=== PATIENT | male | born 1960 | race Caucasian/White ===

== ENCOUNTER 2019-11-27 14:01 | Inpatient (IN) ==
[2019-11-27] MEDS ORDERED: ZOFRAN INJ 4 MG VIAL IVP PRN (15:02)
[2019-11-27] MEDS ORDERED: NS 500 ML IV 500 ML IV ONE ×2 (15:03→17:19)
--- NOTE | 2019-11-27 15:26 | RAD ---
HISTORYDOE, ANEMIASTUDYCHEST, PA/LAT ADULTCOMPARISONNoneFINDINGSThe trachea is midline. The cardiac silhouette is unremarkable . The lungs are clear without focal infiltrate or effusion. Vascularity and mediastinal structures are normal. The bony thorax is unremarkable.IMPRESSIONNo acute cardiopulmonary disease.Electronically signed by: DELORES REID (Nov 27, 2019 15:26:05)
[2019-11-27 15:39] LABS: BASOPHILS % (AUTO) 0.7 % (0.2-1.0); EOSINOPHILS # (AUTO) 0.1 x10^3/uL (0.0-0.2); EOSINOPHILS % (AUTO) 1.6 % (0.9-2.9); HEMATOCRIT 23.2 % (42.0-54.0); HEMOGLOBIN 7.8 g/dL (13.5-18.0); LYMPHOCYTES # (AUTO) 1.3 X10^3/uL (1.3-2.9); LYMPHOCYTES % (AUTO) 24.6 % (21.0-51.0); MEAN CORPUSCULAR HEMOGLOBIN 29.9 pg (27.0-34.0); MEAN CORPUSCULAR HGB CONC 33.6 g/dL (33.0-35.0); MEAN CORPUSCULAR VOLUME 89.2 fL (80.0-100.0); MEAN PLATELET VOLUME 6.6 fL (7.4-11.0); MONOCYTES # (AUTO) 0.4 x10^3/uL (0.3-0.8); MONOCYTES % (AUTO) 7.7 % (0.0-13.0); NEUTROPHILS # (AUTO) 3.6 x10^3/uL (2.2-4.8); NEUTROPHILS % (AUTO) 65.4 % (42.0-75.0); PLATELET COUNT 325 X10^3/uL (150.0-450.0); RED CELL DISTRIBUTION WIDTH 14.1 % (11.6-16.5); WHITE BLOOD COUNT 5.4 X10^3/uL (3.6-10.0)
[2019-11-27 15:44] LABS: HYPOCHROMASIA 1+; PLATELET MORPHOLOGY COMMENT NORMAL (NORMAL)
[2019-11-27] MEDS ORDERED: PREVNAR 13 IM ONE (16:28)
[2019-11-27] MEDS ORDERED: AFLURIA II4 or FLUARIX II4 IM ONE (16:28)
[2019-11-27] MEDS: PROTONIX INJ 40 MG VIAL IVP SCH ×2 (16:38→21:11)
[2019-11-27] MEDS: NS 1000 ML 1,000 ML IV SCH (16:38)
[2019-11-27 17:35] LABS: ALANINE AMINOTRANSFERASE 23 Units/L (12-78); ALBUMIN 3.6 g/dL (3.4-5.0); ALKALINE PHOSPHATASE 79 Units/L (46-116); ASPARTATE AMINO TRANSFERASE 23 Units/L (15-37); BLOOD UREA NITROGEN 15 mg/dL (7-18); CALCIUM 8.8 mg/dL (8.5-10.1); CARBON DIOXIDE 23.1 mmol/L (21-32); CHLORIDE 100 mmol/L (98-107); SODIUM 133 mmol/L (136-145); TOTAL PROTEIN 7.4 g/dL (6.4-8.2); eGFR NON BLACK RACES > 60 (>60)
[2019-11-27] MEDS: BENADRYL INJ 50 MG VIAL IVP PRN (17:40)
--- NOTE | 2019-11-27 17:40 | DR.H&P ---
H&P - History & Physical for Day of: H&P Date: 11/27/19 - Chief Complaint Chief Complaint: weakness, blood in stool, anemic - History of Present Illness History of Present Illness: PT IS 59 WM DIRECT ADMIT FROM DR PARADA OFFICE IN [place] WITH SYMPTOMATIC ANEMIA AND CO BLACK TARRY STOOL, BLOOD IN STOOL. PT HAD HX OF GASTRIC ULCER DISEASED AND HAS BEEN ON PPI THERAPY. PT CO INCREASED FATIGUE AND SOB ON EXERTION WITHOUT ANY FLU LIKE SYMPTOMS. PT HAD +OCCULT STOOL AND HGB OF 7.5 ON OUTPT BASIS. PT ADMITTED FOR ACUTE ILLNESS. - Past Medical History Past Medical History: Anxiety, Arthritis, Diabetes, Dialysis, Hypertension, SVT - Family History Family Medical History: Diabetes Mellitus, Cancer, [place], Sudden Cardiac , Hypertension - Social History Does patient currently use any type of tobacco product: Yes Have you used tobacco products in the last 12 months: Yes Type of Tobacco Use: Smokeless Alcohol Use: None - Medications Home Medications: Penicillins Allergy (Verified 08/09/18 00:42) Sulfa (Sulfonamide Antibiotics) [SULFA] Allergy (Verified 08/09/18 00:42) - Review of Systems Constitutional: Weakness. denies: Fever Eyes: No Symptoms Reported ENT: No Symptoms Reported Respiratory: SOB with Excertion Cardiovascular: No Symptoms Reported, Edema Gastrointestinal: Melena Genitourinary: No Symptoms Reported Musculoskeletal: Back Pain Skin: No Symptoms Reported Neurological: No Symptoms Reported - Physical Exam Vital Signs: Temperature 98.4 F Pulse Rate [Left Brachial] 72 Respiratory Rate 20 Blood Pressure [Right Arm] 169/87 Blood Pressure [Left Arm] 142/67 Blood Pressure 145/93 O2 Sat by Pulse Oximetry 100 Oriented: Normal Eyes: Normal Ear: Normal Nose: Normal Throat: Normal Respiratory: RLL Diminished, LLL Diminished Cardiovascular: Normal, Edema : Normal Auscultation: Bowel Sounds: Normal Palpation: Normal Tenderness: Epigastric, Mild Skin: Decreased Turgur Musculoskeletal: Back:Lumbar Psychiatric: Anxiety Affect: Anxious Speech Pattern: Clear, Appropriate - Assessment/Plan (1) GI bleed Status: Acute Plan: ADMIT, TYPE AND SCREEN. TRANSFUSE PRBC, REPEAT OCCULT STOOL. PPI THERAPY BID, NPO AFTER MIDNIGHT, GI CONSULT. IV HYDRATION, ANEMIA PANEL. VERIFY HOME MEDICATION AND RESUME, HOLD NSAIDS. 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
[2019-11-27] MEDS: TYLENOL 325 MG TAB PO PRN ×2 (17:45→18:43)
[2019-11-27 17:59] LABS: IRON 23 ug/dL (50-175)
[2019-11-27] MEDS: NORCO 10/325 TAB PO PRN (20:06)
[2019-11-27 21:13] LABS: HEMOGLOBIN 7.8 g/dL (13.5-18.0)
[2019-11-28] MEDS: NORCO 10/325 TAB PO PRN ×5 (00:36→21:05)
[2019-11-28] MEDS: NS 1000 ML 1,000 ML IV SCH (05:19)
[2019-11-28 06:26] LABS: BASOPHILS % (AUTO) 0.7 % (0.2-1.0); EOSINOPHILS # (AUTO) 0.1 x10^3/uL (0.0-0.2); EOSINOPHILS % (AUTO) 2.9 % (0.9-2.9); HEMATOCRIT 22.1 % (42.0-54.0); HEMOGLOBIN 7.4 g/dL (13.5-18.0); LYMPHOCYTES # (AUTO) 1.7 X10^3/uL (1.3-2.9); LYMPHOCYTES % (AUTO) 36.8 % (21.0-51.0); MEAN CORPUSCULAR HEMOGLOBIN 29.5 pg (27.0-34.0); MEAN CORPUSCULAR HGB CONC 33.7 g/dL (33.0-35.0); MEAN CORPUSCULAR VOLUME 87.8 fL (80.0-100.0); MEAN PLATELET VOLUME 6.4 fL (7.4-11.0); MONOCYTES # (AUTO) 0.5 x10^3/uL (0.3-0.8); MONOCYTES % (AUTO) 11.2 % (0.0-13.0); NEUTROPHILS # (AUTO) 2.2 x10^3/uL (2.2-4.8); NEUTROPHILS % (AUTO) 48.4 % (42.0-75.0); PLATELET COUNT 255 X10^3/uL (150.0-450.0); RED BLOOD COUNT 2.51 X10^6/uL (4.7-6.0); RED CELL DISTRIBUTION WIDTH 13.8 % (11.6-16.5); WHITE BLOOD COUNT 4.5 X10^3/uL (3.6-10.0)
[2019-11-28 06:28] LABS: ALANINE AMINOTRANSFERASE 21 Units/L (12-78); ALBUMIN 2.8 g/dL (3.4-5.0); ALKALINE PHOSPHATASE 67 Units/L (46-116); ASPARTATE AMINO TRANSFERASE 26 Units/L (15-37); BLOOD UREA NITROGEN 13 mg/dL (7-18); CALCIUM 8.3 mg/dL (8.5-10.1); CARBON DIOXIDE 24.1 mmol/L (21-32); CHLORIDE 104 mmol/L (98-107); COR CA(FOR HYPOALB) 9.3 mg/dL (8.5-10.1); CREATININE 0.82 mg/dL (0.70-1.30); SODIUM 135 mmol/L (136-145); TOTAL PROTEIN 6.1 g/dL (6.4-8.2); eGFR NON BLACK RACES > 60 (>60)
[2019-11-28 07:07] LABS: PLATELET MORPHOLOGY COMMENT NORMAL (NORMAL)
[2019-11-28] MEDS: PROTONIX INJ 40 MG VIAL IVP SCH ×2 (08:59→20:45)
[2019-11-28] MEDS ORDERED: DIPRIVAN VIAL 20 ML ONE (09:46)
[2019-11-28] MEDS ORDERED: INFeD or DEXFERRUM 25 MG in NS 100 ML IV 100 ML IV NR (10:00)
[2019-11-28] MEDS ORDERED: CARAFATE ONE (10:30)
[2019-11-28] MEDS: TYLENOL 325 MG TAB PO PRN (10:39)
[2019-11-28] MEDS: BENADRYL INJ 50 MG VIAL IVP PRN (10:41)
[2019-11-28] MEDS: MORPHINE SULFATE INJ 2 MG INJ IVP PRN ×2 (10:54→19:49)
[2019-11-28] MEDS ORDERED: INFeD or DEXFERRUM 975 MG in NS 500 ML IV 500 ML IV NR (11:00)
[2019-11-28] MEDS ORDERED: NS 500 ML IV 500 ML IV PRN (11:09)
[2019-11-28 11:31] LABS: BILIRUBIN,URINE NEGATIVE (NEGATIVE); BLOOD/HEMOGLOBIN,URINE NEGATIVE (NEGATIVE); GLUCOSE, URINE NEGATIVE (NEGATIVE); KETONES,URINE NEGATIVE (NEGATIVE); LEUKOCYTE ESTERASE ,URINE NEGATIVE (NEGATIVE); NITRITES,URINE NEGATIVE (NEGATIVE); PROTEIN,URINE NEGATIVE (NEGATIVE); UROBILINOGEN,URINE NORMAL (NORMAL)
[2019-11-28 11:42] LABS: APPEARANCE,URINE CLEAR (CLEAR); COLOR,URINE YELLOW (YELLOW)
[2019-11-28] MEDS: CARAFATE PO SCH ×2 (13:04→21:09)
[2019-11-28] MEDS ORDERED: LOPRESSOR TAB 50 MG PO SCH (15:00)
[2019-11-28] MEDS ORDERED: LOPRESSOR TAB 50 MG ONE (15:08)
[2019-11-28 15:56] LABS: HEMATOCRIT 30.2 % (42.0-54.0)
[2019-11-28] MEDS ORDERED: XANAX PO PRN (17:35)
--- NOTE | 2019-11-28 18:11 | PCM.PROG ---
Progress Note - Progress Note for Day of Date of Exam: 11/28/19 - Subjective Subjective: PT IS 59 WM ADMITTED WITH SYMPTOMATIC ANEMIA, GI BLEED. PT HGB WAS 7.8, WITH ONE UNIT PRBC TRANSFUSED DURING THE NIGHT REPEAT 7.4 THIS AM. PT IS CURRENTLY ON PROTONIX IV BID, NPO FOR POSSIBLE EGD PER DR LINDER. PT HAS HX OF CHRONIC LSPINE DDD, PAIN CONTROL CONTINUED. HOLDING NSAID, MOBIC. PT ALSO HAD HX OF SMOKELESS TOBACCO ABUSE WITH REPORTS OF DYSPHAGI. ANEMIA PANEL OBTAINED WITH POSITIVE OCCULT STOOL ON ADMISSION, FE REPLACEMENT ORDERED. - Past Medical Family Social History Past Med/Fam/Surg Hx: No changes since H&P Allergies: Allergies Penicillins Allergy (Verified 08/09/18 00:42) Sulfa (Sulfonamide Antibiotics) [SULFA] Allergy (Verified 08/09/18 00:42) - Review of Systems ROS: No change since H&P - Vital Signs and I&O's Vital Signs: Temperature 99.6 F Pulse Rate [Right Brachial] 119 Pulse Rate [Left Brachial] 68 Respiratory Rate 18 Blood Pressure [Right Arm] 168/81 Blood Pressure [Left Arm] 142/67 Blood Pressure 145/93 O2 Sat by Pulse Oximetry 100 Intake and Output: Intake & Output 11/26/19 11/27/19 11/28/19 11/29/19 11:59 11:59 11:59 11:59 Intake Total 2810 / 2810 1230 / 1230 Balance 2810 / 2810 1230 / 1230 - Physical Exam Oriented: Normal Eyes: Normal Ear: Normal Nose: Normal Throat: Normal Respiratory: Diminished Cardiovascular: Normal, Edema : Normal Auscultation: Bowel Sounds: Normal Tenderness: Epigastric, Mild Skin: Decreased Turgur Musculoskeletal: Back:Lumbar Psychiatric: Anxiety Affect: Anxious Speech Pattern: Clear, Appropriate - Laboratory and Diagnostics Result Diagrams: 11/28/19 15:30 11/28/19 05:10 Labs: Laboratory WBC 4.5 X10^3/uL (3.6-10.0) 11/28/19 05:10 RBC 2.51 X10^6/uL (4.7-6.0) L 11/28/19 05:10 Hgb 10.0 g/dL (13.5-18.0) L D 11/28/19 15:30 Hct 30.2 % (42.0-54.0) L 11/28/19 15:30 MCV 87.8 fL (80.0-100.0) 11/28/19 05:10 MCH 29.5 pg (27.0-34.0) 11/28/19 05:10 MCHC 33.7 g/dL (33.0-35.0) 11/28/19 05:10 RDW 13.8 % (11.6-16.5) 11/28/19 05:10 Plt Count 255 X10^3/uL (150.0-450.0) 11/28/19 05:10 Plt Count Comment Adequate (ADEQUATE) 11/28/19 05:10 MPV 6.4 fL (7.4-11.0) L 11/28/19 05:10 Neut % (Auto) 48.4 % (42.0-75.0) 11/28/19 05:10 Lymph % (Auto) 36.8 % (21.0-51.0) 11/28/19 05:10 Reeves % (Auto) 11.2 % (0.0-13.0) 11/28/19 05:10 Eos % (Auto) 2.9 % (0.9-2.9) 11/28/19 05:10 Baso % (Auto) 0.7 % (0.2-1.0) 11/28/19 05:10 Neut # (Auto) 2.2 x10^3/uL (2.2-4.8) 11/28/19 05:10 Lymph # (Auto) 1.7 X10^3/uL (1.3-2.9) 11/28/19 05:10 Reeves # (Auto) 0.5 x10^3/uL (0.3-0.8) 11/28/19 05:10 Eos # (Auto) 0.1 x10^3/uL (0.0-0.2) 11/28/19 05:10 Baso # (Auto) 0.0 X10^3/uL (0.0-0.1) 11/28/19 05:10 Absolute Nucleated RBC 0.0 /100WBC 11/28/19 05:10 Plt Morphology Comment Normal (NORMAL) 11/28/19 05:10 RBC Morphology Normal (NORMAL) 11/28/19 05:10 Hypochromasia 1+ A 11/27/19 15:25 Sodium 135 mmol/L (136-145) L 11/28/19 05:10 Corrected Sodium TNP 11/28/19 05:10 Potassium 4.3 mmol/L (3.5-5.1) 11/28/19 05:10 Chloride 104 mmol/L (98-107) 11/28/19 05:10 Carbon Dioxide 24.1 mmol/L (21-32) 11/28/19 05:10 BUN 13 mg/dL (7-18) 11/28/19 05:10 Creatinine 0.82 mg/dL (0.70-1.30) 11/28/19 05:10 Est GFR (MDRD) Af Amer > 60 (>60) 11/28/19 05:10 Est GFR (MDRD) Non-Af > 60 (>60) 11/28/19 05:10 Glucose 68 mg/dL (65-99) 11/28/19 05:10 POC Glucose (mg/dL) 108 mg/dL (65-99) H 11/28/19 15:43 Calcium 8.3 mg/dL (8.5-10.1) L 11/28/19 05:10 Corrected Calcium 9.3 mg/dL (8.5-10.1) 11/28/19 05:10 Magnesium 2.2 mg/dL (1.7-2.9) 11/27/19 15:25 Iron 23 ug/dL (50-175) L 11/27/19 15:25 Transferrin 275 mg/dL (202-364) 11/27/19 15:25 Ferritin 19 ng/mL (26-388) L 11/27/19 15:25 Total Bilirubin 0.30 mg/dL (0.2-1.0) 11/28/19 05:10 AST 26 Units/L (15-37) 11/28/19 05:10 ALT 21 Units/L (12-78) 11/28/19 05:10 Alkaline Phosphatase 67 Units/L (46-116) 11/28/19 05:10 Total Protein 6.1 g/dL (6.4-8.2) L 11/28/19 05:10 Albumin 2.8 g/dL (3.4-5.0) L 11/28/19 05:10 Globulin 3.3 g/dL (2.5-4.5) 11/28/19 05:10 Albumin/Globulin Ratio 0.8 Ratio (1.1-2.1) L 11/28/19 05:10 Vitamin B12 271 pg/mL (193-986) 11/27/19 15:25 Folate 7.1 ng/mL (>8.6) L 11/27/19 15:25 Specimen Type Clean catch urine 11/28/19 10:52 Urine Color Yellow (YELLOW) 11/28/19 10:52 Urine Appearance Clear (CLEAR) 11/28/19 10:52 Urine pH 6.0 (5.0 - 8.0) 11/28/19 10:52 Ur Specific [place] 1.010 (1.000-1.030) 11/28/19 10:52 Urine Protein Negative (NEGATIVE) 11/28/19 10:52 Urine Glucose (UA) Negative (NEGATIVE) 11/28/19 10:52 Urine Ketones Negative (NEGATIVE) 11/28/19 10:52 Urine Occult Blood Negative (NEGATIVE) 11/28/19 10:52 Urine Nitrite Negative (NEGATIVE) 11/28/19 10:52 Urine Bilirubin Negative (NEGATIVE) 11/28/19 10:52 Urine Urobilinogen Normal (NORMAL) 11/28/19 10:52 Ur Leukocyte Esterase Negative (NEGATIVE) 11/28/19 10:52 Tissue Pathology To follow 11/28/19 10:38 Blood Type AB POSITIVE 11/27/19 15:25 Blood Type Cancelled 11/27/19 15:25 Antibody Screen Cancelled 11/27/19 15:25 Antibody Screen Negative 11/27/19 15:25 Crossmatch See Detail 11/27/19 15:25 - Plan (1) GI bleed Status: Acute Plan: TYPE AND SCREEN. TRANSFUSE PRBC, REPEAT OCCULT STOOL. PPI THERAPY BID, GI CONSULT. IV HYDRATION, ANEMIA PANEL, FE REPLACEMENT. VERIFY HOME MEDICATION AND RESUME, HOLD NSAIDS. BS CONTROL (2) Anemia Status: Acute (3) Diabetes Status: Chronic Qualifiers: Diabetes mellitus type: type 2 Diabetes mellitus complication status: with neurologic complications Diabetes mellitus complication detail: with polyneuropathy Qualified Code(s): E11.42 - Type 2 diabetes mellitus with diabetic polyneuropathy (4) GERD (gastroesophageal reflux disease) Status: Chronic
[2019-11-28] MEDS: NEURONTIN TAB 600 MG PO SCH ×2 (18:55→23:18)
[2019-11-28] MEDS: LOPRESSOR TAB 50 MG PO SCH (23:51)
[2019-11-29] MEDS: NORCO 10/325 TAB PO PRN ×4 (01:41→13:56)
[2019-11-29] MEDS: NEURONTIN TAB 600 MG PO SCH ×2 (05:11→13:51)
[2019-11-29] MEDS: CARAFATE PO SCH ×2 (05:11→13:51)
[2019-11-29 06:38] LABS: BASOPHILS % (AUTO) 0.1 % (0.2-1.0); EOSINOPHILS % (AUTO) 0.1 % (0.9-2.9); HEMATOCRIT 26.8 % (42.0-54.0); HEMOGLOBIN 9.2 g/dL (13.5-18.0); LYMPHOCYTES # (AUTO) 0.5 X10^3/uL (1.3-2.9); LYMPHOCYTES % (AUTO) 5.2 % (21.0-51.0); MEAN CORPUSCULAR HEMOGLOBIN 29.9 pg (27.0-34.0); MEAN CORPUSCULAR HGB CONC 34.3 g/dL (33.0-35.0); MEAN CORPUSCULAR VOLUME 87.2 fL (80.0-100.0); MEAN PLATELET VOLUME 6.5 fL (7.4-11.0); MONOCYTES # (AUTO) 0.4 x10^3/uL (0.3-0.8); MONOCYTES % (AUTO) 4.7 % (0.0-13.0); NEUTROPHILS # (AUTO) 8.1 x10^3/uL (2.2-4.8); NEUTROPHILS % (AUTO) 89.9 % (42.0-75.0); PLATELET COUNT 227 X10^3/uL (150.0-450.0); RED BLOOD COUNT 3.07 X10^6/uL (4.7-6.0); RED CELL DISTRIBUTION WIDTH 14.1 % (11.6-16.5)
[2019-11-29 07:01] LABS: ALKALINE PHOSPHATASE 76 Units/L (46-116); BLOOD UREA NITROGEN 12 mg/dL (7-18); CALCIUM 8.4 mg/dL (8.5-10.1); CARBON DIOXIDE 23.6 mmol/L (21-32); CHLORIDE 103 mmol/L (98-107); COR CA(FOR HYPOALB) 9.2 mg/dL (8.5-10.1); COR NA(FOR HYPERGLY) 136 mmol/L (136-145); CREATININE 0.89 mg/dL (0.70-1.30); SODIUM 136 mmol/L (136-145); TOTAL PROTEIN 6.6 g/dL (6.4-8.2); eGFR NON BLACK RACES > 60 (>60)
[2019-11-29 07:17] LABS: ALANINE AMINOTRANSFERASE 47 Units/L (12-78); ASPARTATE AMINO TRANSFERASE 54 Units/L (15-37)
[2019-11-29] MEDS: PROTONIX INJ 40 MG VIAL IVP SCH (08:56)
[2019-11-29] MEDS: LOPRESSOR TAB 50 MG PO SCH (08:57)
[2019-11-29] MEDS ORDERED: VITAMIN C PO SCH (09:00)
[2019-11-29] MEDS ORDERED: ROCEPHIN VIAL 1 GRAM 1 G in NS 100 ML IV + SPIKE MINIBAG* 100 ML IV ONE (10:21)
[2019-11-29] MEDS ORDERED: ROCEPHIN VIAL 1 GRAM IM ONE (11:41)
[2019-11-29] MEDS ORDERED: PREVNAR 13 IM ONE (11:52)
[2019-11-29] MEDS ORDERED: ROCEPHIN VIAL 1 GRAM ONE (11:52)
[2019-11-29] MEDS ORDERED: XYLOCAINE 1 % (PLAIN) IM ONE (11:55)
[2019-11-29] MEDS ORDERED: XYLOCAINE 1 % (PLAIN) ONE (12:00)
[2019-11-29 12:34] VITALS: BP 127/63
== END 2019-11-29 14:30 | disposition home or self-care (01) | DRG 379 ==
LOC: MED/SURG → OBSVTOIN 15:03
PROVIDERS: ADMIT Internal Medicine; ATTEND Internal Medicine
DX: K29.00 Acute gastritis without bleeding; E11.42 Type 2 diabetes mellitus with diabetic polyneuropathy; R13.11 Dysphagia, oral phase; Z23 Encounter for immunization; R06.02 Shortness of breath; Z87.11 Personal history of peptic ulcer disease; M51.36 Other intervertebral disc degeneration, lumbar region; K92.1 Melena; K21.9 Gastro-esophageal reflux disease without esophagitis; E11.65 Type 2 diabetes mellitus with hyperglycemia; D64.9 Anemia, unspecified

== ENCOUNTER 2020-07-29 14:30 | Observation (INO) ==
[2020-07-29 16:19] LABS: BASOPHILS % (AUTO) 0.1 % (0.2-1.0); HEMATOCRIT 35.3 % (42.0-54.0); LYMPHOCYTES % (AUTO) 10.4 % (21.0-51.0); MEAN CORPUSCULAR HEMOGLOBIN 30.7 pg (27.0-34.0); MEAN CORPUSCULAR HGB CONC 34.1 g/dL (33.0-35.0); MEAN CORPUSCULAR VOLUME 89.9 fL (80.0-100.0); MONOCYTES # (AUTO) 0.6 x10^3/uL (0.3-0.8); NEUTROPHILS # (AUTO) 8.3 x10^3/uL (2.2-4.8); NEUTROPHILS % (AUTO) 83.5 % (42.0-75.0); PLATELET COUNT 280 X10^3/uL (150.0-450.0); RED BLOOD COUNT 3.93 X10^6/uL (4.7-6.0); RED CELL DISTRIBUTION WIDTH 12.8 % (11.6-16.5)
[2020-07-29 16:31] LABS: ALANINE AMINOTRANSFERASE 16 Units/L (12-78); ALBUMIN 4.2 g/dL (3.4-5.0); ALKALINE PHOSPHATASE 70 Units/L (46-116); ASPARTATE AMINO TRANSFERASE 20 Units/L (15-37); BLOOD UREA NITROGEN 15 mg/dL (7-18); CALCIUM 9.2 mg/dL (8.5-10.1); CARBON DIOXIDE 23.9 mmol/L (21-32); CHLORIDE 91 mmol/L (98-107); CREATININE 1.17 mg/dL (0.70-1.30); SODIUM 129 mmol/L (136-145); TOTAL PROTEIN 7.9 g/dL (6.4-8.2); eGFR NON BLACK RACES > 60 (>60)
[2020-07-29] MEDS: MILK OF MAGNESIA PO SCH ×3 (16:42→21:07)
[2020-07-29] MEDS: SOLU-Medrol 125 MG VIAL IVP SCH ×2 (16:43→21:07)
[2020-07-29] MEDS: PROTONIX INJ 40 MG VIAL IVP SCH (16:43)
[2020-07-29] MEDS: NORCO 10/325 TAB PO PRN ×2 (16:54→23:19)
--- NOTE | 2020-07-29 16:57 | RAD ---
HISTORYCONSTIPATION Relevant Clinical InformationSTUDYACUTE ABDOMEN SERIESCOMPARISONNoneFINDINGSThe trachea is midline. The cardiac silhouette is [unremarkable]. [The lungs are clear without focal mass or consolidation. There is no effusion or pneumothorax.] [The bony thorax is unremarkable].Flat plate and upright evaluation of the abdomen demonstrates a [normal bowel gas pattern]. There is no increase in stool burden to suggest as constipation. There is no pneumoperitoneum. No pathological soft tissue mass or calcification can be observed. The bony structures are grossly intact.IMPRESSION1. [No acute cardiopulmonary disease.]2. [No evidence for acute abdominal pathology identified.] No evidence of constipationElectronically signed by: DELORES REID (Jul 29, 2020 16:55:34)
[2020-07-29 17:06] VITALS: BMI 25.4
--- NOTE | 2020-07-29 17:44 | DR.H&P ---
H&P - History & Physical for Day of: H&P Date: 07/29/20 - Chief Complaint Chief Complaint: constant mid back and lower back pain, dehydrated, no bm in 7 days - History of Present Illness History of Present Illness: PT IS 60 WM ADMITTED WITH CO INTRACTABLE MID AND LOWER BACK PAIN SINCE THIS PAST WEEK. PT REPORTS HE WAS SEEN IN ER 2X SINCE ONSET. CT ABD/PELVIS TO RO RENAL STONE WAS NEGATIVE. PT REPORTS HE HAS HAD FALLS IN PAST BUT NO KNOWN RECENT TRAUMA. 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 PT HAD TAKE NORCO AND MUSCLE RELAXER AT HOME WITHOUT ANY RELIEF. PT REPORTS NO APPETITE, WEAKNESS FROM DEHYDRATION AND NO BM IN 7 DAYS. PT ADMITTED FOR TREATMENT OF ACUTE ILLNESS. - Past Medical History Past Medical History: SVT, Hypertension, Diabetes, Dialysis, Anxiety, Arthritis - Past Surgical History Surgical History: No History - Family History Family Medical History: Diabetes Mellitus, [place] - Social History Does patient currently use any type of tobacco product: No Have you used tobacco products in the last 12 months: No Type of Tobacco Use: None Does any household member use tobacco: No Alcohol Use: None Drug Use: None - Medications Home Medications: Penicillins Allergy (Verified 07/29/20 17:10) Sulfa (Sulfonamide Antibiotics) [SULFA] Allergy (Verified 07/29/20 17:10) CONTINUE taking the following medications acetaminophen [Tylenol] 325 mg PO PRN PRN 07/29/20 [History] alprazolam [Xanax] 0.5 mg PO BID PRN 07/29/20 [History] aspirin 325 mg PO DAILY 07/29/20 [History] carbidopa-levodopa 10 - 100 tab PO TID 07/29/20 [History] meloxicam 7.5 mg PO BID PRN 07/29/20 [History] - Review of Systems Constitutional: Malaise Eyes: No Symptoms Reported ENT: No Symptoms Reported Respiratory: No Symptoms Reported Cardiovascular: No Symptoms Reported Gastrointestinal: Nausea, Constipation, Other (APPETITE LOSS) Genitourinary: Frequency Musculoskeletal: Back Pain, Leg Pain Skin: No Symptoms Reported Neurological: Other (DECREASED SENSATION TO LOWER LEGS) - Physical Exam Vital Signs: Temperature 97.7 F Pulse Rate [Left Brachial] 76 Respiratory Rate 18 Blood Pressure [Right Arm] 127/63 Blood Pressure [Left Arm] 157/79 Blood Pressure 164/77 O2 Sat by Pulse Oximetry 100 Oriented: Normal Eyes: Normal Ear: Normal Nose: Normal Throat: Normal Respiratory: RLL Diminished, LLL Diminished Cardiovascular: Normal : Normal Auscultation: Bowel Sounds: Decreased Palpation: Normal Tenderness: Diffuse, Mild Skin: Decreased Turgur Musculoskeletal: Right, Left, Hip, Back:Thoracic, Back:Lumbar, Tender, Sensory Deficit Psychiatric: Anxiety, Depression Mood Description: Depressed, Anxious Affect: Anxious Speech Pattern: Clear, Appropriate - Assessment/Plan (1) Intractable low back pain Status: Acute Plan: ADMIT, ADMISSION LABS. GENTLE IV HYDRATION, I&OS. BP AND BS CONTROL, IV SOLU MEDROL. EKG AND ABD SERIES ON ADMISSION. PAIN AND NAUSEA CONTROL, PPI THERAPY. MRI T AND L SPINE TO RO SPINAL CORD COMPRESSION. VERIFY HOME MEDICATION (2) Dehydration with hyponatremia Status: Acute (3) Neuropathy Status: Acute (4) Hypertension Qualifiers: Hypertension type: essential hypertension Qualified Code(s): I10 - Essential (primary) hypertension Status: Chronic (5) Diabetes Qualifiers: Diabetes mellitus type: type 2 Diabetes mellitus complication status: with neurologic complications Diabetes mellitus complication detail: with polyneuropathy Qualified Code(s): E11.42 - Type 2 diabetes mellitus with diabetic polyneuropathy Status: Chronic (6) DDD (degenerative disc disease), lumbosacral Status: Chronic (7) GERD (gastroesophageal reflux disease) Status: Chronic (8) Constipation Qualifiers: Constipation type: slow transit constipation Qualified Code(s): K59.01 - Slow transit constipation Status: Acute - Allergies Allergies/Adverse Reactions: Allergies Allergy/AdvReac Type Severity Reaction Status Date / Time Penicillins Allergy Verified 07/29/20 17:10 Sulfa (Sulfonamide Allergy Verified 07/29/20 17:10 Antibiotics) [SULFA]
[2020-07-29 17:48] LABS: APPEARANCE,URINE CLEAR (CLEAR); BILIRUBIN,URINE NEGATIVE (NEGATIVE); BLOOD/HEMOGLOBIN,URINE NEGATIVE (NEGATIVE); COLOR,URINE YELLOW (YELLOW); GLUCOSE, URINE NEGATIVE (NEGATIVE); KETONES,URINE 3+ (NEGATIVE); LEUKOCYTE ESTERASE ,URINE NEGATIVE (NEGATIVE); NITRITES,URINE NEGATIVE (NEGATIVE); PROTEIN,URINE NEGATIVE (NEGATIVE); UROBILINOGEN,URINE NORMAL (NORMAL)
[2020-07-29] MEDS ORDERED: TORADOL 15 MG VIAL ONE (17:50)
[2020-07-29] MEDS: NS 1000 ML 1,000 ML IV SCH (17:52)
[2020-07-29] MEDS: NEURONTIN TAB 600 MG PO SCH ×2 (17:52→21:06)
[2020-07-29] MEDS: TORADOL 15 MG VIAL IVP SCH (17:53)
[2020-07-29] MEDS ORDERED: MORPHINE SULFATE INJ 2 MG INJ IVP ONE (20:54)
[2020-07-29] MEDS: LOPRESSOR TAB 50 MG PO SCH (21:06)
[2020-07-29] MEDS: SINEMET (PLAIN) 10/100 MG PO SCH (21:06)
[2020-07-29] MEDS: COLACE CAP 100 MG PO SCH (21:06)
[2020-07-30] MEDS: TORADOL 15 MG VIAL IVP SCH ×2 (02:15→09:05)
[2020-07-30] MEDS: SINEMET (PLAIN) 10/100 MG PO SCH ×3 (05:10→21:45)
[2020-07-30] MEDS: NEURONTIN TAB 600 MG PO SCH ×3 (05:10→21:45)
[2020-07-30] MEDS: SOLU-Medrol 125 MG VIAL IVP SCH ×3 (05:10→21:46)
[2020-07-30] MEDS: NORCO 10/325 TAB PO PRN ×4 (05:17→23:14)
[2020-07-30 05:35] LABS: BASOPHILS % (AUTO) 0.1 % (0.2-1.0); HEMATOCRIT 31.5 % (42.0-54.0); LYMPHOCYTES # (AUTO) 0.3 X10^3/uL (1.3-2.9); LYMPHOCYTES % (AUTO) 9.3 % (21.0-51.0); MEAN CORPUSCULAR HGB CONC 34.9 g/dL (33.0-35.0); MEAN CORPUSCULAR VOLUME 88.8 fL (80.0-100.0); MEAN PLATELET VOLUME 6.6 fL (7.4-11.0); MONOCYTES # (AUTO) 0 x10^3/uL (0.3-0.8); NEUTROPHILS # (AUTO) 3.2 x10^3/uL (2.2-4.8); NEUTROPHILS % (AUTO) 89.6 % (42.0-75.0); PLATELET COUNT 229 X10^3/uL (150.0-450.0); RED BLOOD COUNT 3.55 X10^6/uL (4.7-6.0); RED CELL DISTRIBUTION WIDTH 12.8 % (11.6-16.5); WHITE BLOOD COUNT 3.6 X10^3/uL (3.6-10.0)
[2020-07-30 05:47] LABS: ALANINE AMINOTRANSFERASE 16 Units/L (12-78); ALBUMIN 3.5 g/dL (3.4-5.0); ALKALINE PHOSPHATASE 69 Units/L (46-116); ASPARTATE AMINO TRANSFERASE 15 Units/L (15-37); BLOOD UREA NITROGEN 12 mg/dL (7-18); CALCIUM 8.3 mg/dL (8.5-10.1); CARBON DIOXIDE 23.7 mmol/L (21-32); CHLORIDE 96 mmol/L (98-107); COR NA(FOR HYPERGLY) 135 mmol/L (136-145); CREATININE 0.99 mg/dL (0.70-1.30); SODIUM 131 mmol/L (136-145); TOTAL PROTEIN 6.9 g/dL (6.4-8.2); eGFR NON BLACK RACES > 60 (>60)
[2020-07-30] MEDS: NS 1000 ML 1,000 ML IV SCH ×3 (06:28→16:42)
[2020-07-30] MEDS: ZANAFLEX PO PRN ×2 (06:28→23:14)
[2020-07-30] MEDS ORDERED: PROTONIX TAB 40 MG PO SCH (09:00)
[2020-07-30] MEDS: PROTONIX INJ 40 MG VIAL IVP SCH (09:04)
[2020-07-30] MEDS: LOPRESSOR TAB 50 MG PO SCH ×2 (09:05→21:45)
[2020-07-30] MEDS: MILK OF MAGNESIA PO SCH (09:06)
[2020-07-30] MEDS: HumuLIN R SUBCUT PRN ×3 (11:06→21:48)
[2020-07-30] MEDS ORDERED: ZOFRAN INJ 4 MG VIAL IVP PRN (15:55)
[2020-07-30] MEDS ORDERED: SNACK - Diabetic Appropriate PO SCH (20:00)
[2020-07-30] MEDS: COLACE CAP 100 MG PO SCH (21:45)
[2020-07-30] MEDS: XANAX PO PRN (23:14)
[2020-07-31] MEDS: NS 1000 ML 1,000 ML IV SCH ×2 (00:22→04:45)
[2020-07-31] MEDS: NORCO 10/325 TAB PO PRN ×2 (05:09→11:20)
[2020-07-31] MEDS: NEURONTIN TAB 600 MG PO SCH ×2 (05:58→14:15)
[2020-07-31] MEDS: SINEMET (PLAIN) 10/100 MG PO SCH ×2 (05:58→14:15)
[2020-07-31] MEDS: SOLU-Medrol 125 MG VIAL IVP SCH ×2 (05:59→14:15)
[2020-07-31] MEDS: HumuLIN R SUBCUT PRN ×2 (06:03→11:25)
[2020-07-31 07:19] LABS: BASOPHILS % (AUTO) 0 % (0.2-1.0); HEMOGLOBIN 10.4 g/dL (13.5-18.0); LYMPHOCYTES # (AUTO) 0.4 X10^3/uL (1.3-2.9); LYMPHOCYTES % (AUTO) 2.4 % (21.0-51.0); MEAN CORPUSCULAR HEMOGLOBIN 31.3 pg (27.0-34.0); MEAN CORPUSCULAR HGB CONC 34.7 g/dL (33.0-35.0); MEAN CORPUSCULAR VOLUME 90.4 fL (80.0-100.0); MEAN PLATELET VOLUME 6.4 fL (7.4-11.0); MONOCYTES # (AUTO) 0.3 x10^3/uL (0.3-0.8); MONOCYTES % (AUTO) 1.7 % (0.0-13.0); NEUTROPHILS # (AUTO) 14.5 x10^3/uL (2.2-4.8); NEUTROPHILS % (AUTO) 95.9 % (42.0-75.0); PLATELET COUNT 231 X10^3/uL (150.0-450.0); RED BLOOD COUNT 3.32 X10^6/uL (4.7-6.0); RED CELL DISTRIBUTION WIDTH 13.1 % (11.6-16.5); WHITE BLOOD COUNT 15.2 X10^3/uL (3.6-10.0)
[2020-07-31 07:33] LABS: ALANINE AMINOTRANSFERASE 10 Units/L (12-78); ALBUMIN 3.3 g/dL (3.4-5.0); ALKALINE PHOSPHATASE 78 Units/L (46-116); ASPARTATE AMINO TRANSFERASE 16 Units/L (15-37); BLOOD UREA NITROGEN 11 mg/dL (7-18); CALCIUM 7.7 mg/dL (8.5-10.1); CHLORIDE 98 mmol/L (98-107); COR CA(FOR HYPOALB) 8.3 mg/dL (8.5-10.1); COR NA(FOR HYPERGLY) 135 mmol/L (136-145); CREATININE 0.79 mg/dL (0.70-1.30); SODIUM 132 mmol/L (136-145); TOTAL PROTEIN 6.4 g/dL (6.4-8.2); eGFR NON BLACK RACES > 60 (>60)
[2020-07-31 07:38] LABS: PLATELET MORPHOLOGY COMMENT NORMAL (NORMAL)
[2020-07-31] MEDS ORDERED: NS 250 ML IV 250 ML IV ONE (07:45)
--- NOTE | 2020-07-31 08:22 | MRI ---
HISTORYLOW BACK PAIN, worsened recentlySTUDYMRI L SPINE W/O IV CONTRASTCOMPARISONCT 06/03/2020TECHNIQUEMultiplanar multisequence MRI of the lumbar spine was obtained without IV contrast.FINDINGSThe conus terminates at the T12 level. No spondylolisthesis. No compression fracture or abnormal bony signal.T12 -- L1: No significant stenosis.L1 -- L2: No significant stenosis.L2 -- L3: No significant stenosis.L3 -- L4: No significant stenosis.L4 -- L5: Slight facet arthropathy and mild posterior element hypertrophy causes slight thecal sac effacement.L5 -- S1:Mild facet hypertrophy causes no stenosis.IMPRESSIONMild facet arthropathy is seen at L4-5 with little central canal narrowing.Electronically signed by: Mohamud Sanchez (Jul 31, 2020 08:20:00)
[2020-07-31] MEDS: PROTONIX INJ 40 MG VIAL IVP SCH (08:30)
[2020-07-31] MEDS: LOPRESSOR TAB 50 MG PO SCH (08:30)
--- NOTE | 2020-07-31 08:30 | MRI ---
HISTORYINTRACTABLE MID BACK PAINSTUDYMRI thoracic spine without IV contrastCOMPARISONCT 06/03/2020TECHNIQUEMRI of the thoracic spinewithout and with IV contrast is performed using standard sequences in multiple planes. 17 cc MultiHance IV contrast.FINDINGSMild scoliosis seen on CT is not well identified on MRI. Veterinary Medicine Teacher image suggest little cervical spondylosis in the upper cervical region. No compression fracture is seen. No abnormal bony signal is seen. No abnormal signal is seen in the cord. No disc bulge or herniation is seen.There is an osteophyte arising from the left facet joint at T10-11. This causes moderate left neural foraminal narrowing. No other bony spondylosis is seen.Contrast enhanced images reveal no abnormal bone or disc enhancement. There is no abnormal cord enhancement.IMPRESSIONOsteophyte arising from the left facet joint at T10-11 causes moderate left neural foraminal narrowing.No significant central canal stenosis is seen. No disc herniations are seen.Electronically signed by: Mohamud Sanchez (Jul 31, 2020 08:28:04)
[2020-07-31] MEDS ORDERED: TORADOL 30 MG VIAL IVP ONE (09:30)
[2020-07-31 12:14] VITALS: BP 177/81
[2020-07-31 12:16] LABS: ALANINE AMINOTRANSFERASE 18 Units/L (12-78); ALBUMIN 3.4 g/dL (3.4-5.0); ALKALINE PHOSPHATASE 90 Units/L (46-116); ASPARTATE AMINO TRANSFERASE 16 Units/L (15-37); BLOOD UREA NITROGEN 12 mg/dL (7-18); CALCIUM 7.7 mg/dL (8.5-10.1); CARBON DIOXIDE 25.1 mmol/L (21-32); CHLORIDE 97 mmol/L (98-107); COR NA(FOR HYPERGLY) 135 mmol/L (136-145); CREATININE 0.98 mg/dL (0.70-1.30); SODIUM 131 mmol/L (136-145); TOTAL PROTEIN 6.7 g/dL (6.4-8.2); eGFR NON BLACK RACES > 60 (>60)
[2020-07-31] MEDS: ZANAFLEX PO PRN (14:20)
[2020-07-31] MEDS: XANAX PO PRN (14:20)
== END 2020-07-31 14:55 | disposition home or self-care (01) ==
LOC: MED/SURG
PROVIDERS: ADMIT Internal Medicine; ATTEND Internal Medicine
DX: E11.42 Type 2 diabetes mellitus with diabetic polyneuropathy; K59.01 Slow transit constipation; E87.1 Hypo-osmolality and hyponatremia; F41.8 Other specified anxiety disorders; R94.31 Abnormal electrocardiogram [ECG] [EKG]; I10 Essential (primary) hypertension; E86.0 Dehydration; M48.061 Spinal stenosis, lumbar region without neurogenic claudication; K21.9 Gastro-esophageal reflux disease without esophagitis; M51.36 Other intervertebral disc degeneration, lumbar region; E11.65 Type 2 diabetes mellitus with hyperglycemia; M54.5 Low back pain

== ENCOUNTER 2021-05-26 15:49 | Observation (INO) ==
--- NOTE | 2021-05-26 16:23 | DR.H&P ---
H&P - History & Physical for Day of: H&P Date: 05/26/21 - Chief Complaint Chief Complaint: ABDOMINAL PAIN, NAUSEA, VOMITING "BAD GALLBLADDER" - History of Present Illness History of Present Illness: PT IS 61 WM DIRECT ADMIT FROM DR PARADA WITH CO RIGHT UPPER ABDOMINAL PAIN, N/V/D. PT HAD HX OF BILIARY DYKINESIA, WITH HIDA SCAN REVEALING EF 19%. PT HAD PMH OF DM, LSPINE DDD, GERD, HTN AND ANEMIA. PT ADMITTED FOR TREATMENT AND EVALUATION OF ACUTE ILLNESS. - Past Medical History Past Medical History: SVT, Hypertension, Diabetes, Dialysis, Anxiety, Arthritis - Past Surgical History Surgical History: No History - Family History Family Medical History: Diabetes Mellitus, [place] - Social History Does patient currently use any type of tobacco product: No Have you used tobacco products in the last 12 months: No Type of Tobacco Use: Smokeless Does any household member use tobacco: No Alcohol Use: None Drug Use: None Risks, benefits, and alternatives of opioids discussed: No Prescription drug monitoring program results: PDMP reviewed and no concerns identified - Medications Home Medications: Penicillins Allergy (Verified 07/29/20 17:10) Sulfa (Sulfonamide Antibiotics) [SULFA] Allergy (Verified 07/29/20 17:10) - Review of Systems Constitutional: Weakness Eyes: No Symptoms Reported ENT: No Symptoms Reported Respiratory: No Symptoms Reported Cardiovascular: No Symptoms Reported Gastrointestinal: Nausea, Vomiting, Abdominal Pain, Diarrhea Genitourinary: No Symptoms Reported Musculoskeletal: Back Pain Skin: No Symptoms Reported Neurological: Weakness - Physical Exam Vital Signs: Blood Pressure [Right Arm] 177/81 Oriented: Normal Eyes: Normal Ear: Normal Nose: Normal Throat: Normal Respiratory: RLL Diminished, LLL Diminished Cardiovascular: Normal Auscultation: Bowel Sounds: Increased Tenderness: RUQ, Moderate Skin: Decreased Turgur Musculoskeletal: Back:Lumbar Psychiatric: Anxiety Affect: Anxious Speech Pattern: Clear, Appropriate - Assessment/Plan (1) Right upper quadrant abdominal pain Status: Acute Plan: ADMIT, ADMISSION LABS INCLUDE AMYLASE AND LIPASE. IV CIPRO, IV HYDRATION. PAIN AND NAUSEA CONTROL. CT/ABD PELVIS WITH CONTRAST. NPO AFTER MIDNIGHT, CONSULT DR LINDER (2) Biliary dyskinesia Status: Acute (3) Anemia Status: Acute (4) Degenerative disc disease Status: Acute (5) Depression Qualifiers: Major depression recurrence: single episode Psychotic features: without psychotic features Status: Acute - Allergies Allergies/Adverse Reactions: Allergies Allergy/AdvReac Type Severity Reaction Status Date / Time Penicillins Allergy Verified 07/29/20 17:10 Sulfa (Sulfonamide Allergy Verified 07/29/20 17:10 Antibiotics) [SULFA]
[2021-05-26] MEDS: NS 1,000 ML IV 1,000 ML IV SCH (17:52)
[2021-05-26] MEDS: PROTONIX INJ 40 MG VIAL IVP SCH (17:52)
[2021-05-26 17:59] LABS: BASOPHILS # (AUTO) 0.1 X10^3/uL (0.0-0.1); BASOPHILS % (AUTO) 0.9 % (0.2-1.0); EOSINOPHILS # (AUTO) 0.2 x10^3/uL (0.0-0.2); EOSINOPHILS % (AUTO) 2.1 % (0.9-2.9); HEMATOCRIT 31.1 % (42.0-54.0); HEMOGLOBIN 10.7 g/dL (13.5-18.0); LYMPHOCYTES # (AUTO) 1.7 X10^3/uL (1.3-2.9); LYMPHOCYTES % (AUTO) 20.1 % (21.0-51.0); MEAN CORPUSCULAR HEMOGLOBIN 32.3 pg (27.0-34.0); MEAN CORPUSCULAR HGB CONC 34.4 g/dL (33.0-35.0); MEAN PLATELET VOLUME 5.9 fL (7.4-11.0); MONOCYTES # (AUTO) 0.7 x10^3/uL (0.3-0.8); MONOCYTES % (AUTO) 8.6 % (0.0-13.0); NEUTROPHILS # (AUTO) 5.6 x10^3/uL (2.2-4.8); NEUTROPHILS % (AUTO) 68.3 % (42.0-75.0); RED BLOOD COUNT 3.31 X10^6/uL (4.7-6.0); RED CELL DISTRIBUTION WIDTH 13.1 % (11.6-16.5); WHITE BLOOD COUNT 8.2 X10^3/uL (3.6-10.0)
[2021-05-26] MEDS: MORPHINE SULFATE INJ 2 MG INJ IVP PRN (18:00)
[2021-05-26 18:11] LABS: ALANINE AMINOTRANSFERASE < 6 Units/L (12-78); ALBUMIN 3.6 g/dL (3.4-5.0); ALKALINE PHOSPHATASE 98 Units/L (46-116); AMYLASE 61 Units/L (25-115); ASPARTATE AMINO TRANSFERASE 15 Units/L (15-37); BLOOD UREA NITROGEN 21 mg/dL (7-18); CALCIUM 8.5 mg/dL (8.5-10.1); CARBON DIOXIDE 26.5 mmol/L (21-32); CHLORIDE 92 mmol/L (98-107); CREATININE 1.04 mg/dL (0.70-1.30); LIPASE 61 Units/L (73-393); SODIUM 126 mmol/L (136-145); TOTAL PROTEIN 6.8 g/dL (6.4-8.2); eGFR NON BLACK RACES > 60 (>60)
[2021-05-26] MEDS ORDERED: NITROSTAT SL PRN (19:08)
[2021-05-26] MEDS: CIPRO IV 400 MG PREMIX* 400 MG/200 ML IV.SOLN. IV SCH (21:30)
[2021-05-26 21:52] LABS: BILIRUBIN,URINE NEGATIVE (NEGATIVE); BLOOD/HEMOGLOBIN,URINE NEGATIVE (NEGATIVE); GLUCOSE, URINE NEGATIVE (NEGATIVE); KETONES,URINE NEGATIVE (NEGATIVE); LEUKOCYTE ESTERASE ,URINE NEGATIVE (NEGATIVE); NITRITES,URINE NEGATIVE (NEGATIVE); PH,URINE 6.5 (5.0 - 8.0); PROTEIN,URINE NEGATIVE (NEGATIVE); UROBILINOGEN,URINE NORMAL (NORMAL)
[2021-05-26 21:56] LABS: APPEARANCE,URINE CLEAR (CLEAR); COLOR,URINE STRAW (YELLOW)
--- NOTE | 2021-05-26 22:04 | CT ---
EXAM: CT ABDOMEN AND PELVIS WITH INTRAVENOUS CONTRASTHISTORY: Intractable abdominal pain. Diabetes mellitus. Hypertension.TECHNIQUE: Spiral axial CT images are obtained through the abdomen and pelvis with the administration of oral contrast and intravenous contrast. Additional coronal and sagittal reformatted images are reconstructed.DOSIMETRY: Total DLP 942.2 mGycm; CTDI 49.1 mGyCOMPARISON: CXR dated December 30, 2020.FINDINGS:GASTROINTESTINAL TRACT: There is no evidence for bowel herniation, bowel obstruction, colitis or diverticulitis. Status post appendectomy. Abundant fecal material is seen within the large bowel loops; nonspecific finding; rule out constipation.GENITOURINARY SYSTEM: The kidneys are unremarkable. There is no ureteral calculus or stigmata of obstructive uropathy. There is stable prostatomegaly (5.5 cm transverse by 5 cm AP) in keeping with BPH; concomitant occult neoplastic disease not excluded. Mildly thickened stable appearance of the urinary bladder wall (7.3 mm), with minimal pericystic stranding, which may represent sequela of incomplete bladder distention or chronic muscle wall hypertrophy secondary to chronic partial outlet obstruction, and/or cystitis in the appropriate clinical setting. Clinical correlation is advised.CT ABDOMEN: The liver, spleen, pancreas, adrenal glands, gallbladder, aorta, and inferior vena cava are within normal limits for a CT scan. There is no intra-abdominal or retroperitoneal lymphadenopathy, free fluid, or free air seen. No abdominal herniation is noted.CT PELVIS: No pelvic sidewall or inguinal lymphadenopathy is seen. No inguinal herniation is noted. No free fluid or free air is seen.BONES AND JOINTS: The visualized bony structures are within normal limits.LUNG BASES: The lung bases are clear.IMPRESSION:1. Stable prostatomegaly (5.5 cm transverse by 5 cm AP) in keeping with BPH; concomitant occult neoplastic disease not excluded.2. Mildly thickened stable appearance of the urinary bladder wall (7.3 mm), with minimal pericystic stranding, which may represent sequela of incomplete bladder distention or chronic muscle wall hypertrophy secondary to chronic partial outlet obstruction, and/or cystitis in the appropriate clinical setting. Clinical correlation is advised.3. No evidence for pyelonephritis, renal stone disease or obstructive uropathy.4. No evidence for acute appendicitis, bowel herniation/obstruction, colitis or diverticulitis seen.5. Abundant fecal material is seen within the large bowel loops; nonspecific finding; rule out constipation.6. No free fluid, free air, mass lesions, or lymphadenopathy seen.Electronically signed by: Lisa Galvin (May 26, 2021 22:03:39)
[2021-05-27 05:22] LABS: BASOPHILS # (AUTO) 0.1 X10^3/uL (0.0-0.1); BASOPHILS % (AUTO) 0.9 % (0.2-1.0); EOSINOPHILS # (AUTO) 0.2 x10^3/uL (0.0-0.2); EOSINOPHILS % (AUTO) 2.3 % (0.9-2.9); HEMATOCRIT 36.5 % (42.0-54.0); HEMOGLOBIN 12.1 g/dL (13.5-18.0); LYMPHOCYTES # (AUTO) 2.1 X10^3/uL (1.3-2.9); LYMPHOCYTES % (AUTO) 29.4 % (21.0-51.0); MEAN CORPUSCULAR HEMOGLOBIN 31.3 pg (27.0-34.0); MEAN CORPUSCULAR HGB CONC 33.3 g/dL (33.0-35.0); MEAN CORPUSCULAR VOLUME 93.9 fL (80.0-100.0); MEAN PLATELET VOLUME 6.2 fL (7.4-11.0); MONOCYTES # (AUTO) 0.7 x10^3/uL (0.3-0.8); MONOCYTES % (AUTO) 9.8 % (0.0-13.0); NEUTROPHILS % (AUTO) 57.6 % (42.0-75.0); RED BLOOD COUNT 3.88 X10^6/uL (4.7-6.0); RED CELL DISTRIBUTION WIDTH 13.3 % (11.6-16.5)
[2021-05-27 05:37] LABS: ALANINE AMINOTRANSFERASE 17 Units/L (12-78); ALKALINE PHOSPHATASE 103 Units/L (46-116); ASPARTATE AMINO TRANSFERASE 16 Units/L (15-37); BLOOD UREA NITROGEN 14 mg/dL (7-18); CARBON DIOXIDE 24.2 mmol/L (21-32); CHLORIDE 95 mmol/L (98-107); CREATININE 0.94 mg/dL (0.70-1.30); SODIUM 131 mmol/L (136-145); TOTAL PROTEIN 7.6 g/dL (6.4-8.2); eGFR NON BLACK RACES > 60 (>60)
[2021-05-27] MEDS: MORPHINE SULFATE INJ 2 MG INJ IVP PRN ×3 (06:00→11:41)
[2021-05-27] MEDS: NS 1,000 ML IV 1,000 ML IV SCH ×2 (06:13→20:25)
[2021-05-27] MEDS ORDERED: DULCOLAX SUPPOSITORY 10 MG RECTAL ONE (08:30)
[2021-05-27] MEDS: PROTONIX INJ 40 MG VIAL IVP SCH (09:36)
[2021-05-27] MEDS: CIPRO IV 400 MG PREMIX* 400 MG/200 ML IV.SOLN. IV SCH ×2 (09:40→21:59)
[2021-05-27] MEDS: ZOFRAN INJ 4 MG VIAL IVP PRN (15:31)
[2021-05-27] MEDS: MORPHINE SULFATE INJ 4 MG IVP PRN ×2 (17:42→22:09)
[2021-05-27] MEDS: NORCO 10/325 TAB PO PRN (19:25)
[2021-05-27] MEDS ORDERED: ZANAFLEX PO PRN (20:51)
[2021-05-27] MEDS ORDERED: XANAX PO PRN (20:51)
[2021-05-27] MEDS ORDERED: MOBIC TAB 15 MG PO PRN (20:51)
[2021-05-27] MEDS ORDERED: MELATONIN PO SCH (21:00)
[2021-05-27] MEDS: LOPRESSOR TAB 50 MG PO SCH (22:02)
[2021-05-27] MEDS: SINEMET (PLAIN) 10/100 MG PO SCH (22:02)
[2021-05-27] MEDS: NEURONTIN CAP 400 MG PO SCH (22:03)
[2021-05-27] MEDS: VITAMIN C PO SCH (22:04)
[2021-05-28] MEDS: NORCO 10/325 TAB PO PRN ×2 (03:42→20:39)
[2021-05-28] MEDS: SINEMET (PLAIN) 10/100 MG PO SCH ×3 (05:25→21:46)
[2021-05-28] MEDS: NEURONTIN CAP 400 MG PO SCH ×4 (05:25→23:06)
[2021-05-28] MEDS: MORPHINE SULFATE INJ 4 MG IVP PRN ×3 (05:46→14:52)
[2021-05-28 06:13] LABS: BASOPHILS % (AUTO) 0.3 % (0.2-1.0); EOSINOPHILS % (AUTO) 0.6 % (0.9-2.9); HEMOGLOBIN 10.3 g/dL (13.5-18.0); LYMPHOCYTES # (AUTO) 1.3 X10^3/uL (1.3-2.9); MEAN CORPUSCULAR HEMOGLOBIN 32.1 pg (27.0-34.0); MEAN CORPUSCULAR HGB CONC 34.5 g/dL (33.0-35.0); MEAN CORPUSCULAR VOLUME 93.1 fL (80.0-100.0); MONOCYTES # (AUTO) 0.7 x10^3/uL (0.3-0.8); NEUTROPHILS # (AUTO) 3.9 x10^3/uL (2.2-4.8); NEUTROPHILS % (AUTO) 66.1 % (42.0-75.0); RED BLOOD COUNT 3.22 X10^6/uL (4.7-6.0); RED CELL DISTRIBUTION WIDTH 13.3 % (11.6-16.5)
[2021-05-28 06:26] LABS: ALANINE AMINOTRANSFERASE 6 Units/L (12-78); ALBUMIN 3.4 g/dL (3.4-5.0); ALKALINE PHOSPHATASE 72 Units/L (46-116); ASPARTATE AMINO TRANSFERASE 15 Units/L (15-37); BLOOD UREA NITROGEN 9 mg/dL (7-18); CALCIUM 8.7 mg/dL (8.5-10.1); CARBON DIOXIDE 25.2 mmol/L (21-32); CHLORIDE 99 mmol/L (98-107); CREATININE 0.87 mg/dL (0.70-1.30); SODIUM 133 mmol/L (136-145); TOTAL PROTEIN 6.4 g/dL (6.4-8.2); eGFR NON BLACK RACES > 60 (>60)
[2021-05-28] MEDS ORDERED: GLUCOPHAGE PO SCH ×2 (07:00→17:00)
[2021-05-28] MEDS: COZAAR PO SCH (08:53)
[2021-05-28] MEDS: HEMOCYTE-PLUS PO SCH (09:01)
[2021-05-28] MEDS: LOPRESSOR TAB 50 MG PO SCH ×2 (09:01→20:41)
[2021-05-28] MEDS: VITAMIN C PO SCH (09:01)
[2021-05-28] MEDS: CIPRO IV 400 MG PREMIX* 400 MG/200 ML IV.SOLN. IV SCH ×2 (09:02→20:36)
[2021-05-28] MEDS: PROTONIX INJ 40 MG VIAL IVP SCH (09:02)
--- NOTE | 2021-05-28 09:23 | RAD ---
HISTORYPRE OP GALLBLADDERSTUDYCHEST, 1 [id number]/05/2022.TECHNIQUEAP view of the chestFINDINGSThe cardiac and mediastinal contours are within normal limits. The lungs are clear without focal consolidation or segmental collapse. No pleural effusion or pneumothorax. Patient's chin obscures portions of the lung apices.IMPRESSIONNo acute pulmonary process.Electronically signed by: Jimmy Macdonald (May 28, 2021 09:23:45)
[2021-05-28] MEDS ORDERED: DIPRIVAN VIAL 20 ML ONE (11:41)
[2021-05-28] MEDS ORDERED: OFIRMEV IV 1000 MG VIAL 1,000 MG/100 ML VIAL IV ONE (11:41)
[2021-05-28] MEDS ORDERED: BRIDION ONE (11:41)
[2021-05-28] MEDS ORDERED: QUELICIN (OR ANECTINE) ONE (11:42)
[2021-05-28] MEDS ORDERED: FENTANYL VIAL INJ 250 mcg ONE (11:42)
[2021-05-28] MEDS ORDERED: ZEMURON 100 MG VIAL ONE (11:42)
[2021-05-28] MEDS ORDERED: TORADOL 30 MG VIAL ONE (11:42)
[2021-05-28] MEDS ORDERED: ZOFRAN INJ 4 MG VIAL ONE (11:42)
[2021-05-28] MEDS ORDERED: VERSED ONE (11:46)
[2021-05-28] MEDS ORDERED: BACTROBAN TOPICAL OINT ONE (11:59)
[2021-05-28] MEDS ORDERED: CLEOCIN 600 MG IV PREMIX 600 MG/50 ML BAG IV ONE (12:07)
[2021-05-28] MEDS ORDERED: NS 1,000 ML IV 1,000 ML ONE (12:07)
[2021-05-28] MEDS ORDERED: SUPRANE ONE (12:15)
[2021-05-28] MEDS ORDERED: EPHEDRINE SULFATE INJ ONE (12:37)
[2021-05-28] MEDS ORDERED: PHENERGAN INJ 25 MG IM PRN (13:37)
[2021-05-28] MEDS ORDERED: BARHEMSYS INJ IVP PRN (13:37)
[2021-05-28] MEDS ORDERED: BENADRYL INJ 50 MG VIAL IVP PRN (13:37)
[2021-05-28] MEDS ORDERED: REGLAN INJ 10 MG VIAL IVP PRN (13:37)
[2021-05-28] MEDS ORDERED: ZOFRAN INJ 4 MG VIAL IVP PRN (13:37)
[2021-05-28] MEDS ORDERED: DILAUDID INJ ONE ×2 (13:39→13:51)
[2021-05-28] MEDS: DILAUDID INJ IVP PRN ×4 (13:40→13:58)
[2021-05-28] MEDS: NS 1,000 ML IV 1,000 ML IV SCH ×2 (14:20→19:04)
[2021-05-28] MEDS ORDERED: STERILE WATER IRRIGATION IR ONE (15:11)
--- NOTE | 2021-05-28 16:40 | PCM.PROG ---
Progress Note - Subjective Subjective: Patient is a 61 year old male who was admitted as per HPI. Dr. Sanford (general surgery) was consulted and patient underwent lap abran today. Tolerated procedure well. Will plan for dc in am pending surgery clearance. No new concerns at present. - Past Medical Family Social History Past Med/Fam/Surg Hx: No changes since H&P Allergies: Allergies Penicillins Allergy (Verified 05/26/21 18:01) Sulfa (Sulfonamide Antibiotics) [SULFA] Allergy (Verified 05/26/21 18:01) - Review of Systems ROS: No change since H&P - Vital Signs and I&O's Vital Signs: Temperature 97.6 F Pulse Rate [Left Brachial] 89 Pulse Rate 75 Respiratory Rate 18 Blood Pressure [Left Arm] 148/70 Blood Pressure [Right Arm] 111/54 Blood Pressure 145/71 O2 Sat by Pulse Oximetry 100 Intake and Output: Intake & Output 05/25/21 05/26/21 05/27/21 05/28/21 23:59 23:59 23:59 23:59 Intake Total 375 / 375 2968 / 2968 3349 / 3349 Output Total 100 / 100 Balance 375 / 375 2968 / 2968 3249 / 3249 - Physical Exam Oriented: Normal Eyes: Normal Ear: Normal Nose: Normal Throat: Normal Respiratory: Normal Cardiovascular: Normal : Normal Auscultation: Bowel Sounds: Increased Palpation: Normal Tenderness: RUQ, Moderate Skin: Decreased Turgur Musculoskeletal: Back:Lumbar Psychiatric: Anxiety Mood Description: Calm Affect: Anxious Speech Pattern: Clear, Appropriate - Laboratory and Diagnostics Result Diagrams: 05/28/21 05:22 05/28/21 05:25 Labs: Laboratory WBC 6.0 X10^3/uL (3.6-10.0) 05/28/21 05:22 RBC 3.22 X10^6/uL (4.7-6.0) L 05/28/21 05:22 Hgb 10.3 g/dL (13.5-18.0) L 05/28/21 05:22 Hct 30.0 % (42.0-54.0) L 05/28/21 05:22 MCV 93.1 fL (80.0-100.0) 05/28/21 05:22 MCH 32.1 pg (27.0-34.0) 05/28/21 05:22 MCHC 34.5 g/dL (33.0-35.0) 05/28/21 05:22 RDW 13.3 % (11.6-16.5) 05/28/21 05:22 Plt Count 347 X10^3/uL (150.0-450.0) 05/28/21 05:22 MPV 6.0 fL (7.4-11.0) L 05/28/21 05:22 Neut % (Auto) 66.1 % (42.0-75.0) 05/28/21 05:22 Lymph % (Auto) 22.0 % (21.0-51.0) 05/28/21 05:22 [place] % (Auto) 11.0 % (0.0-13.0) 05/28/21 05:22 Eos % (Auto) 0.6 % (0.9-2.9) L 05/28/21 05:22 Baso % (Auto) 0.3 % (0.2-1.0) 05/28/21 05:22 Neut # (Auto) 3.9 x10^3/uL (2.2-4.8) 05/28/21 05:22 Lymph # (Auto) 1.3 X10^3/uL (1.3-2.9) 05/28/21 05:22 [place] # (Auto) 0.7 x10^3/uL (0.3-0.8) 05/28/21 05:22 Eos # (Auto) 0.0 x10^3/uL (0.0-0.2) 05/28/21 05:22 Baso # (Auto) 0.0 X10^3/uL (0.0-0.1) 05/28/21 05:22 Absolute Nucleated RBC 0.1 /100WBC 05/28/21 05:22 Sodium 133 mmol/L (136-145) L 05/28/21 05:25 Corrected Sodium TNP 05/28/21 05:25 Potassium 3.9 mmol/L (3.5-5.1) 05/28/21 05:25 Chloride 99 mmol/L (98-107) 05/28/21 05:25 Carbon Dioxide 25.2 mmol/L (21-32) 05/28/21 05:25 BUN 9 mg/dL (7-18) 05/28/21 05:25 Creatinine 0.87 mg/dL (0.70-1.30) 05/28/21 05:25 Est GFR (MDRD) Af Amer > 60 (>60) 05/28/21 05:25 Est GFR (MDRD) Non-Af > 60 (>60) 05/28/21 05:25 Glucose 107 mg/dL (65-99) H 05/28/21 05:25 POC Glucose (mg/dL) 99 mg/dL (65-99) 05/28/21 11:15 Calcium 8.7 mg/dL (8.5-10.1) 05/28/21 05:25 Corrected Calcium TNP 05/28/21 05:25 Total Bilirubin 0.30 mg/dL (0.2-1.0) 05/28/21 05:25 AST 15 Units/L (15-37) 05/28/21 05:25 ALT 6 Units/L (12-78) L 05/28/21 05:25 Alkaline Phosphatase 72 Units/L (46-116) 05/28/21 05:25 Total Protein 6.4 g/dL (6.4-8.2) 05/28/21 05:25 Albumin 3.4 g/dL (3.4-5.0) 05/28/21 05:25 Globulin 3.0 g/dL (2.5-4.5) 05/28/21 05:25 Albumin/Globulin Ratio 1.1 Ratio (1.1-2.1) 05/28/21 05:25 Amylase 61 Units/L (25-115) 05/26/21 17:43 Lipase 61 Units/L (73-393) L 05/26/21 17:43 Specimen Type Random urine 05/26/21 21:10 Urine Color Straw (YELLOW) 05/26/21 21:10 Urine Appearance Clear (CLEAR) 05/26/21 21:10 Urine pH 6.5 (5.0 - 8.0) 05/26/21 21:10 Ur Specific [place] 1.010 (1.000-1.030) 05/26/21 21:10 Urine Protein Negative (NEGATIVE) 05/26/21 21:10 Urine Glucose (UA) Negative (NEGATIVE) 05/26/21 21:10 Urine Ketones Negative (NEGATIVE) 05/26/21 21:10 Urine Blood Negative (NEGATIVE) 05/26/21 21:10 Urine Nitrite Negative (NEGATIVE) 05/26/21 21:10 Urine Bilirubin Negative (NEGATIVE) 05/26/21 21:10 Urine Urobilinogen Normal (NORMAL) 05/26/21 21:10 Ur Leukocyte Esterase Negative (NEGATIVE) 05/26/21 21:10 Stool Description 100g hard/solid dark 05/27/21 21:10 Stl Occult Blood (IFOB) Positive (NEGATIVE) A 05/27/21 21:10 SARS CoV-2 RNA Rapid NEETU Negative (NEGATIVE) 05/26/21 20:00 Tissue Pathology To follow 05/28/21 13:15 - Plan (1) Biliary dyskinesia Status: Acute Plan: General surgery consulted. Lap abran today. Pending dc in am if cleared by general surgery. Labs in am (2) Right upper quadrant abdominal pain Status: Acute Plan: ADMIT, ADMISSION LABS INCLUDE AMYLASE AND LIPASE. IV CIPRO, IV HYDRATION. PAIN AND NAUSEA CONTROL. CT/ABD PELVIS WITH CONTRAST. NPO AFTER MIDNIGHT, CONSULT DR LINDER (3) Hypertension Status: Chronic Qualifiers: Hypertension type: essential hypertension Qualified Code(s): I10 - Essential (primary) hypertension (4) Diabetes Status: Chronic Qualifiers: Diabetes mellitus type: type 2 Diabetes mellitus complication status: with neurologic complications Diabetes mellitus complication detail: with polyneuropathy Qualified Code(s): E11.42 - Type 2 diabetes mellitus with diabetic polyneuropathy (5) GERD (gastroesophageal reflux disease) Status: Chronic (6) Chronic low back pain Status: Chronic
[2021-05-28] MEDS ORDERED: PATIENT'S HOME MEDICATION (Alprazolam [Xanax] 0.5 mg Tablet) PO PRN (16:51)
[2021-05-28] MEDS ORDERED: PATIENT'S HOME MEDICATION (Meloxicam 7.5 mg Tablet) PO PRN (16:51)
[2021-05-28] MEDS ORDERED: LOPRESSOR TAB 50 MG PO SCH (17:00)
[2021-05-28] MEDS ORDERED: PATIENT'S HOME MEDICATION (Ferrous Sulfate 325 mg (65 mg iron) Tablet) PO SCH (17:00)
[2021-05-28] MEDS ORDERED: COZAAR PO SCH (17:00)
--- NOTE | 2021-05-28 17:02 | OR.IMMED ---
Immediate Post-Op Note - Immediate Post-Op Note Pre-Op Diagnosis: cholecystitis . Post-Op Diagnosis: chronic and acute cholecystitis with distended GB . extensive adhesions aound the GB alnd liver as well as RUQ . Procedure: lap abran . lysis of adhesions .. Surgeon/Claims Adjudicator: Dr Sanford Specimens Removed: GB with contents . Estimated Blood Loss: 20 to 30 cc Drains: NONE Complications: none Condition: Stable (clear liquid today)
[2021-05-28] MEDS: PROTONIX TAB 40 MG PO SCH (18:05)
[2021-05-28] MEDS: ZANAFLEX PO PRN (20:40)
[2021-05-28] MEDS ORDERED: VITAMIN C PO SCH (21:00)
[2021-05-28] MEDS ORDERED: MELATONIN PO SCH (21:00)
[2021-05-28] MEDS ORDERED: CARBIDOPA LEVODOPA PO SCH (22:00)
[2021-05-29] MEDS: NORCO 10/325 TAB PO PRN (05:59)
[2021-05-29] MEDS: SINEMET (PLAIN) 10/100 MG PO SCH (06:02)
[2021-05-29] MEDS: NEURONTIN CAP 400 MG PO SCH ×2 (06:07→11:31)
[2021-05-29] MEDS: NS 1,000 ML IV 1,000 ML IV SCH (06:07)
[2021-05-29 06:17] LABS: BASOPHILS % (AUTO) 0.4 % (0.2-1.0); EOSINOPHILS % (AUTO) 0.8 % (0.9-2.9); HEMATOCRIT 25.9 % (42.0-54.0); HEMOGLOBIN 8.9 g/dL (13.5-18.0); LYMPHOCYTES # (AUTO) 1.3 X10^3/uL (1.3-2.9); LYMPHOCYTES % (AUTO) 22.4 % (21.0-51.0); MEAN CORPUSCULAR HEMOGLOBIN 31.9 pg (27.0-34.0); MEAN CORPUSCULAR HGB CONC 34.2 g/dL (33.0-35.0); MEAN CORPUSCULAR VOLUME 93.1 fL (80.0-100.0); MEAN PLATELET VOLUME 5.9 fL (7.4-11.0); MONOCYTES # (AUTO) 0.6 x10^3/uL (0.3-0.8); MONOCYTES % (AUTO) 9.9 % (0.0-13.0); NEUTROPHILS # (AUTO) 3.9 x10^3/uL (2.2-4.8); NEUTROPHILS % (AUTO) 66.5 % (42.0-75.0); RED BLOOD COUNT 2.78 X10^6/uL (4.7-6.0); RED CELL DISTRIBUTION WIDTH 13.4 % (11.6-16.5); WHITE BLOOD COUNT 5.8 X10^3/uL (3.6-10.0)
[2021-05-29 06:36] LABS: ALANINE AMINOTRANSFERASE 7 Units/L (12-78); ALBUMIN 2.7 g/dL (3.4-5.0); ALKALINE PHOSPHATASE 60 Units/L (46-116); ASPARTATE AMINO TRANSFERASE 29 Units/L (15-37); BLOOD UREA NITROGEN 5 mg/dL (7-18); CALCIUM 8.3 mg/dL (8.5-10.1); CARBON DIOXIDE 24.6 mmol/L (21-32); CHLORIDE 104 mmol/L (98-107); COR CA(FOR HYPOALB) 9.3 mg/dL (8.5-10.1); CREATININE 0.74 mg/dL (0.70-1.30); SODIUM 136 mmol/L (136-145); TOTAL PROTEIN 5.3 g/dL (6.4-8.2); eGFR NON BLACK RACES > 60 (>60)
[2021-05-29] MEDS ORDERED: GLUCOPHAGE ONE (08:28)
[2021-05-29] MEDS: ZOFRAN INJ 4 MG VIAL IVP PRN (08:32)
[2021-05-29] MEDS: HEMOCYTE-PLUS PO SCH (08:32)
[2021-05-29] MEDS: PROTONIX TAB 40 MG PO SCH (08:32)
[2021-05-29] MEDS: LOPRESSOR TAB 50 MG PO SCH (08:32)
[2021-05-29] MEDS: COZAAR PO SCH (08:32)
[2021-05-29] MEDS: MORPHINE SULFATE INJ 4 MG IVP PRN ×2 (08:33→12:35)
[2021-05-29] MEDS: CIPRO IV 400 MG PREMIX* 400 MG/200 ML IV.SOLN. IV SCH (08:37)
[2021-05-29] MEDS: ZANAFLEX PO PRN (11:31)
[2021-05-29 13:11] VITALS: BP 175/79
--- NOTE | 2021-07-21 12:19 | PCM.DCPLAN ---
Discharge Plan - Discharge Plan Hospital Course: Admit date 05/26/21 Discharge date 05/29/21 DOS 05/26/21 Admit Diagnosis(1) Right upper quadrant abdominal pain (2) Biliary dyskinesia (3) Anemia (4) Degenerative disc disease (5) Depression Discharge Diagnosis Same Hospital Course PT IS 61 WM DIRECT ADMIT FROM DR PARADA WITH CO RIGHT UPPER ABDOMINAL PAIN, N/V/D. PT HAD HX OF BILIARY DYKINESIA, WITH HIDA SCAN REVEALING EF 19% and recurrent cholecystitis with gallbladder sludge and distended gallbladder. PT HAD PMH OF DM, LSPINE DDD, GERD, HTN AND ANEMIA. PT ADMITTED FOR TREATMENT AND EVALUATION OF ACUTE ILLNESS. Patient underwent lap abran with sylvia drain placement. Dr. Sanford performed surgery. Patient is tolerating food, fluids, and pain well. Patient was cleared by general surgery for discharged; see med rec. Greater than 35 mins spent on discharge. Disposition: HOME, SELF-CARE Condition: Stable Health Concerns: Post Hospitalization: new medications and changes needed to prevent readmission or further decline. Pt educated and given instructions on all concerns. Care Plan Goals: Problem: Pain/Alteration in Comfort Goal: Improve/ Resolve Pain; Achieve Pain Tolerance Instructions: Take pain medications as prescribed. Contact your primary care provider if your pain is unrelieved or worsens. Follow up with primary care provider as directed. Plan of Treatment: Continue with present treatment and follow up plan. Pt is to keep follow up appointment as instructed and take medications as ordered. Prescriptions: New hydrocodone-acetaminophen 5-325 mg Tablet 1 tab PO Q4H MDD 6 PRN (Reason: Pain) Qty: 20 RF: 0 Continued alprazolam [Xanax] 0.5 mg Tablet 0.5 mg PO BID PRN (Reason: Anxiety) ascorbic acid (vitamin C) [Vitamin C] 500 mg Tablet 500 mg PO HS aspirin 325 mg Tablet 325 mg PO DAILY carbidopa-levodopa 10-100 mg Tablet 10 - 100 tab PO TID ferrous sulfate 325 mg (65 mg iron) Tablet 325 mg PO DAILY gabapentin 800 mg Tablet 800 mg PO Q6H hydrocodone-acetaminophen 10-325 mg Tablet 1 tab PO Q8H PRN (Reason: Pain) losartan 25 mg tablet 50 mg PO DAILY melatonin 5 mg Tablet 5 mg PO HS meloxicam 7.5 mg Tablet 7.5 mg PO BID PRN metformin 500 mg Tablet 500 mg PO DAILY metoprolol tartrate 50 mg Tablet 50 mg PO BID pantoprazole [Protonix] 40 mg Tablet,Delayed Release (Dr/Ec) 40 mg PO DAILY quetiapine 100 mg Tablet 100 mg PO HS tizanidine [Zanaflex] 4 mg tablet 4 mg PO TID PRN (Reason: Muscle Spasm) - Orders to Discharge Patient Discharge Orders: Discharge (Routine); Ordered 05/29/21 Ordered By: Robyn Weldon - Follow ups/Referrals Follow ups/Referrals: ANTHONY MIRANDA [STAFF PHYSICIAN] - 06/09/21 11:05 am - Instructions Instructions: Dehydration, Adult, Mter-by-Peds, Laparoscopic Cholecystectomy, Care After, Eating Plan for Dumping Syndrome, Type 2 Diabetes Mellitus, Self- Care, Adult, [id number], Hypertension, Adult, [id number], Hyponatremia, [id number], Dumping Syndrome Forms: Precautions for COVID19, [facility], Patient Portal, Social Distancing Print Language: [id number]
== END 2021-05-29 13:15 | disposition home or self-care (01) ==
LOC: MED/SURG
PROVIDERS: ADMIT Internal Medicine; ATTEND Internal Medicine
DX: K81.0 Acute cholecystitis; E11.42 Type 2 diabetes mellitus with diabetic polyneuropathy; M54.59 Other low back pain; R10.11 Right upper quadrant pain; Z20.822 Contact with and (suspected) exposure to COVID-19; E87.1 Hypo-osmolality and hyponatremia; F32.89 Other specified depressive episodes; K82.8 Other specified diseases of gallbladder; R94.31 Abnormal electrocardiogram [ECG] [EKG]; I10 Essential (primary) hypertension; R11.2 Nausea with vomiting, unspecified; D64.89 Other specified anemias; M51.36 Other intervertebral disc degeneration, lumbar region